=== PATIENT | female | born 1960 | race African-American/Black ===

== ENCOUNTER 2019-03-22 08:49 | Emergency (ER) | payer OTHER, MEDICAID ==
[~2019-03-22] VITALS: Ht 162.6 cm; Wt 81.8 kg
[2019-03-22 08:50] VITALS: Ht 162.6 cm; Wt 81.8 kg
[2019-03-22] MEDS ORDERED: NORVASC5 MG PO (08:53)
[2019-03-22] MEDS ORDERED: PREDNISONE20 MG PO (09:50)
[2019-03-22 10:01] VITALS: BP 151/84
== END 2019-03-22 10:02 | disposition home or self-care (01) ==
LOC: D.ER 08:49 → EDBD 08:49 → D.ER 10:02
DX: K12.2 Cellulitis and abscess of mouth (principal)